=== PATIENT | female | born 1985 | race Caucasian/White ===

== ENCOUNTER 2017-10-29 08:43 | Emergency (ER) | payer SELFPAY ==
[~2017-10-29 08:43] MED LIST: DICL-192 PO; GUAI-489 PO; IBUP600T22 PO; LOR5/325 PO; NEO/3.5O17 OP; TRAM-420 PO
[2017-10-29 08:47] VITALS: BP 128/85
--- NOTE | 2017-10-29 08:48 | ER Report ---
History and Physical Time Seen By MD: 08:47 HPI/ROS CHIEF COMPLAINT: Sore throat HISTORY OF PRESENT ILLNESS: A 32-year-old female here with complaints of sore throat for the last 2 days with worsening pain especially on the right throat. Patient reports some nausea without vomiting, malaise. She is noted to have right tender cervical adenopathy, swallowing, exudates and erythema of the right tonsillar pillars. Patient denies fevers, chills, chest pain, shortness of breath. REVIEW OF SYSTEMS: ENT: + sore throat, + right cervical adenopathy Respiratory: No cough, no dyspnea. Cardiovascular: No chest pain, no palpitations. Gastrointestinal: No vomiting, no abdominal pain. Musculoskeletal: No back pain. Allergies: Coded Allergies: No Known Drug Allergies (Unverified , 10/29/17) Home Meds Active Scripts Diclofenac Sodium (DICLOFENAC SODIUM) 50 Mg Tablet.dr, 50 MG PO BID for pain, # 20 TAB TAKE 1 TABLET BY MOUTH 3 TIMES A DAY Prov:JANE AMEZCUA MD 07/29/13 Discontinued Scripts Guaifenesin/Codeine Phosphate (GUAIATUSSIN AC LIQUID) 118 Ml Liquid, 5-10 ML PO Q6H for cogh, #120 Prov:ROSCOE GUZMAN DO 04/20/15 Hydrocodone Bit/Acetaminophen (HYDROCODON-ACETAMINOPHEN 5-325) 1 Each Tablet, 1 EACH PO Q4-6H for pain, #12 TAKE ONE TABLET BY MOUTH EVERY 4-6 HOURS NEEDED FOR PAIN Prov:JANE AMEZCUA MD 07/29/13 Hx Smoking: Yes (1 PACK A DAY) Smoking Status: Current: Every Day Smoker Exposure to Second Hand Smoke?: Yes Hx Substance Use Disorder: No Hx Alcohol Use: No Constitutional Vital Sign - Last 24 Hours 10/29/17 08:47 Temp 97.6 Pulse 84 Resp 14 B/P (MAP) 128/85 Pulse Ox 96 O2 Delivery Room Air Physical Exam General Appearance: The patient is alert, has no immediate need for airway protection and no current signs of toxicity. + moderate distress due to pain Eyes: Pupils equal and round no injection. ENT: + right tonsillar exudates with erythema, + right cervical adenopathy Respiratory: Chest is non tender, lungs are clear to auscultation. Cardiac: regular rate and rhythm Gastrointestinal: Abdomen is soft and non tender, no masses, bowel sounds normal. Musculoskeletal: Neck: Neck is supple and non tender. Extremities have full range of motion and are non tender. Skin: No rashes or lesions. DIFFERENTIAL DIAGNOSIS: After history and physical exam differential diagnosis was considered for strep pharyngitis, mononucleosis, viral infection, trauma Medical Decision Making Data Points Laboratory Hematology Test 10/29/17 08:52 10/29/17 09:29 Group A Streptococcus Screen Negative (NEGATIVE) Chemistry Test 10/29/17 08:52 10/29/17 09:29 Group A Streptococcus Screen Negative (NEGATIVE) ED Course/Re-evaluation ED Course Patient is a 32-year-old female here with complaints of right sore throat for the past 2 days with exudate and erythema of the right tonsil. Patient reports worsening sore throat, right cervical adenopathy. Initial rapid strep was negative however based on her clinical picture, patient was treated with single dose of penicillin G due to concern for bacterial infection. Patient agreed to return promptly for worsening symptoms, dysphagia, difficulty breathing. I advised the patient that this may be the beginning of a peritonsillar abscess even though at the time this does not warrant aspiration or further imaging. Patient voiced understanding. Decision to Disposition Date: October 29, 2017 Decision to Disposition Time: 09:33 Depart Departure Latest Vital Signs Vital Signs Date Time Temp Pulse Resp B/P (MAP) Pulse Ox O2 Delivery O2 Flow Rate FiO2 10/29/17 08:47 97.6 84 14 128/85 96 Room Air Impression: Primary Impression: Sore throat Condition: Improved Disposition: HOME OR SELF-CARE Patient Instructions: Strep Throat (ED) Additional Instructions: You were given a single dose of antibiotic medication to cover for suspected strep throat. You may take numbing sprays, saltwater swish and spit, NSAIDs as needed for symptom relief. Please return promptly if you develope difficulty breathing, difficulty swallowing, worsening pain, fevers, muffled voice. SALOME STARR DO October 29, 2017 08:48
[2017-10-29] MEDS ORDERED: PENICILLIN G BENZATHIN IM SUSP IM ONLY ONE (09:40)
== END 2017-10-29 09:55 | disposition home or self-care (01) ==
LOC: ER 08:52
DX: J02.9 Acute pharyngitis, unspecified (principal)
CPT/HCPCS: 36415; 86308; 87081; 87880; 96372; 99282; J0561